=== PATIENT | male | born 1990 | race Caucasian/White ===

== ENCOUNTER 2017-03-06 17:10 | Inpatient (IN) | payer OTHER ==
[~2017-03-06] VITALS: Ht 180.3 cm; Wt 77.1 kg
[2017-03-06] MEDS ORDERED: METHOCARBAMOL 750 MG TABLET PO PRN (19:45)
[2017-03-06] MEDS ORDERED: LOPERAMIDE HCL 2 MG CAPSULE PO PRN ×2 (19:45)
[2017-03-06] MEDS ORDERED: BUPRENORPHINE HCL 2 MG TAB.SUBL SL PRN (19:45)
[2017-03-06] MEDS ORDERED: ONDANSETRON 4 MG/2 ML VIAL IM PRN (19:45)
[2017-03-06] MEDS ORDERED: ONDANSETRON ODT 4 MG TAB.RAPDIS SL PRN (19:45)
[2017-03-06] MEDS ORDERED: MAG HYDROX/AL HYDROX/SIMETH 30 ML LIQUID UDC PO PRN (19:45)
[2017-03-06] MEDS ORDERED: DICYCLOMINE HCL 20 MG TABLET PO PRN (19:45)
[2017-03-06] MEDS ORDERED: MIRALAX 17 GM POWD.PACK PO PRN (19:45)
[2017-03-06] MEDS ORDERED: MAGNESIUM HYDROXIDE 30 ML LIQUID UDC PO PRN (19:45)
[2017-03-06] MEDS ORDERED: diphenhydrAMINE 50 MG CAPSULE PO PRN (19:45)
[2017-03-06] MEDS ORDERED: ACETAMINOPHEN 325 MG TABLET PO PRN (19:45)
--- NOTE | 2017-03-06 19:45 | NUR ---
Pre Admission note Pt assessed in intake office. Pt is stable at this time and suitable for admission to unit. Policies on medication disposal explained and understood by patient. V/S WNL. Will admit to unit.
[2017-03-06 19:57] LABS: *AMPHETAMINE, URINE POSITIVE (NEGATIVE); *BARBITURATE, URINE NEGATIVE (NEGATIVE); *CANNABINOID, URINE POSITIVE (NEGATIVE); *COCCAINE, URINE NEGATIVE (NEGATIVE); *OPIATE, URINE POSITIVE (NEGATIVE); *PHENCYCLIDINE SCREEN,URINE NEGATIVE (NEGATIVE)
--- NOTE | 2017-03-06 20:00 | NUR ---
Admission note Pt is a 26 yo male, A+Ox4, presenting to [facility] for Opiate/Methamphetamine/Marijuana dependence. Pt has NKA, is on Full Code status, and on Regular diet. Pt is 5'11" in height and 170 LBS in weight. Pt has medical HX of MRSA. Pt has no family HX to report. Pt has no primary care provider. Pt has been using Heroin IV for 10 years (3 months currently), has reached a level of 2gm-3gm/daily, and last dose was "12gm" on 03-05-17. Pt has been using Methamphetamine IV/inhalation for 10 years (3 months currently), has reached a level of 0.25gm/daily, and last dose was 0.25gm on 03-04-17. Pt has been using Marijuana PO/inhalation for 12 years (3 months currently), has reached a level of "800mg"/daily, and last dose was 1gm on 03-06-17 @1900. Pt is not taking any home medications. Pt has HX of previous Detox/Rehab for 3 months @ [facility] in [facility] in June 2016, and continued sobriety for 3 more months totaling 6 months. This was the patients last time sober. Pt states that he only smokes cigarettes when at Detox/Rehab facility and smokes about 5/daily. Pt is stable at this time. V/S WNL. No s/s of distress noted at this time. Respirations even and unlabored. Will continue to monitor.
[2017-03-06 20:12] LABS: BASOPHILS # (AUTO) 0.1 K/uL (0.0-8.0); BASOPHILS % (AUTO) 0.7 % (0.0-2.0); EOSINOPHILS # (AUTO) 0.1 K/uL (0.0-0.7); HEMATOCRIT 38.9 % (40-50); HEMOGLOBIN 12.8 G/DL (14.0-18.0); LYMPHOCYTES % (AUTO) 25.1 % (20.5-51.5); MEAN CORPUSCULAR HGB CONC 33 g/dL (32.0-37.0); MEAN CORPUSCULAR VOLUME 85.1 FL (82.0-92.0); MONOCYTES % (AUTO) 8.4 % (0.0-11.0); NEUTROPHILS # (AUTO) 7.8 K/UL (1.8-8.9); NEUTROPHILS % (AUTO) 64.8 % (38.5-71.5); PLATELET COUNT (AUTO) 364 K/UL (150-450); RED BLOOD CELL COUNT(AUTO) 4.57 MIL/UL (4.7-6.1); WHITE BLOOD COUNT (AUTO) 11.9 K/UL (4.0-11.2)
[2017-03-06 20:23] LABS: ETHANOL < 3 MG/DL (0-0)
[2017-03-06 20:31] LABS: ALANINE AMINOTRANSFERASE 19 U/L (16-63); ALKALINE PHOSPHATASE 83 U/L (50-136); ASPARTATE AMINOTRANSFERASE 20 U/L (15-37); BILIRUBIN,TOTAL 0.1 mg/dL (0.2-1.0); CARBON DIOXIDE 30 mmol/L (21-32); CHLORIDE 103 mmol/L (98-107); CREATININE 1.3 mg/dL (0.6-1.3); GLUCOSE 92 mg/dL (74-106); MAGNESIUM 2.1 mg/dL (1.8-2.4); POTASSIUM 4.6 mmol/L (3.5-5.1); TOTAL PROTEIN, SERUM 7.4 g/dL (6.4-8.2); UREA NITROGEN, BLOOD 12 mg/dL (7-18)
[2017-03-06 20:39] VITALS: BP 111/61
[2017-03-07 00:16] VITALS: BP 98/52
--- NOTE | 2017-03-07 02:35 | NUR ---
PRN Motrin Pt c/o Right arm abscess pain and requested for PRN Motrin. Medication given and tolerated well. Will reassess within 1 HR. Will continue to monitor.
[2017-03-07] MEDS: IBUPROFEN 600 MG TABLET PO PRN (02:36)
--- NOTE | 2017-03-07 03:30 | NUR ---
PRN Motrin Reassessment Medication effective. Pt expresses reduction in pain. No s/s of ASE/distress noted at this time. Respirations even and unlabored. Will continue to monitor.
[2017-03-07 04:41] VITALS: BP 103/55
--- NOTE | 2017-03-07 07:01 | NUR ---
End of shift note Pt is a 26 yo male, A+Ox4, presenting to [facility] for Opiate/Methamphetamine/Marijuana dependence. Pt has NKA, is on Full Code status, and on Regular diet. Pt is on Fall precautions. Pt has HX of MRSA and Right arm abscess. Pt is on PRN medications until evaluation for taper medications by . Pt was given PRN Motrin @0235. Pt slept for a total of 7 HRS. Last COWS: 1 @0400. No s/s of distress noted at this time. Respirations even and unlabored. Will endorse to day shift nurse.
[2017-03-07 08:00] VITALS: BP 135/75
--- NOTE | 2017-03-07 08:10 | NUR ---
START OF SHIFT NOTE Received report from night nurse, 26 year old male admitted for Opiate/Methamphetamine/Marijuana dependence. NKA, Full Code status, Regular diet. Pt is on Fall precautions. Pt has history of MRSA and Right arm abscess. Pt currently not on any taper PRN available for s/s of withdrawal. Pt received PRN Motrin effective per night nurse, slept for 7 hours, Last COWS: 1. Received pt resting in her room in stable condition, responsive to verbal and tactile stimuli. Skin warm and dry to touch. Breathing normal no SOB noted. No s/s of distress noted at this time. Respirations even and unlabored. All safety measures in place, Call light within reach. Will cont to monitor.
[2017-03-07] MEDS: MULTIVITAMINS,THERAPEUTIC TABLET PO SCH (08:59)
[2017-03-07] MEDS ORDERED: TUBERCULIN,PURIF.PROT.DERIV. 5 TU/0.1 ML TEST ID ONE (09:00)
[2017-03-07] MEDS: HYDROXYZINE PAMOATE 25 MG CAPSULE PO PRN (09:03)
[2017-03-07] MEDS: CLONIDINE HCL 0.1 MG TABLET PO PRN (09:04)
--- NOTE | 2017-03-07 09:07 | NUR ---
COWS 18 Subutex 4mg sl prn given and pt c/o severe anxiety. Vistaril 25mg po prn and Clonidine 0.1mg po prn administered
--- NOTE | 2017-03-07 09:27 | NUR ---
SUBUTEX REASSESSMENT Upon reassessment pt reported medication effective COWS noted-7. Will cont to monitor.
--- NOTE | 2017-03-07 09:57 | NUR ---
VISTARIL/CLONIDINE REASSESSMENT Upon reassessment pt reported medications effective, feeling less anxious, chills and sweats subside. Will cont to monitor.
[2017-03-07] MEDS ORDERED: LORAZEPAM 1 MG TABLET PO PRN ×2 (10:45)
[2017-03-07] MEDS ORDERED: LORAZEPAM 2 MG/1 ML VIAL IM PRN (10:45)
[2017-03-07] MEDS ORDERED: BUPRENORPHINE HCL 2 MG TAB.SUBL SL ONE (10:45)
--- NOTE | 2017-03-07 11:17 | NUR ---
SUBUTEX x1 DOSE Pt was seen and evaluated by Dr. Iverson with new x1 order for Subutex 2mg SL. Administered medication as ordered COWS score noted -9. Will cont to monitor and reassess the pt. Safety measures in place.
--- NOTE | 2017-03-07 11:37 | NUR ---
REASSESSMENT Upon reassessment pt reported medication effective, feeling less anxious and agitated, COWS decreased to 5. Will cont to monitor.
[2017-03-07 12:00] VITALS: BP 128/79
[2017-03-07] MEDS: BUPRENORPHINE HCL 2 MG TAB.SUBL SL SCH ×3 (13:09→20:38)
[2017-03-07] MEDS: LORAZEPAM 1 MG TABLET PO SCH ×3 (13:09→20:35)
--- NOTE | 2017-03-07 13:36 | NUR ---
WOUND CARE CONSULT: PT PRESENTS WITH LARGE BUMP TO RT FOREARM WHICH IS RED AND PAINFUL. SURGICAL CONSULT CALLED TO DR LAURIE WHITESIDE BY DR EASLEY. WILL SEE PRN.
--- NOTE | 2017-03-07 15:34 | NUR ---
Therapist encouraged client to continue his daily participation in group psychotherapy. Therapist addressed any questions about the group with client, and client stated that he would continue to attend.
[2017-03-07 16:00] VITALS: BP 140/66
[2017-03-07] MEDS ORDERED: KETOROLAC TROMETHAMINE 30 MG INJ IM ONE (18:45)
--- NOTE | 2017-03-07 19:20 | NUR ---
END OF SHIFT NOTE Gave report to night nurse, 26 year old male admitted for Opiate/Methamphetamine/Marijuana dependence. NKA, Full Code status, Regular diet. Pt is on Fall precautions. Pt has history of MRSA and Right arm abscess. Pt received PRN medications and x1 dose noted to be effective. Pt started on 5 day Subutex and 5 days Ativan taper today tolerated well. Pt presents with large bump on his right arm red and hard to touch. Pt attended some groups and activities. Pt remained in stable condition.Breathing normal no SOB noted. Skin warm and dry to touch. Last CIWA-5, COWS-5. Encouraged Po fluids as tolerated. All safety measures in place, Call light within reach. Pt endorsed to night nurse in stable condition.
--- NOTE | 2017-03-07 19:45 | NUR ---
START OF SHIFT NOTE PATIENT ALERT AND ORIENTED X 4. RESPIRATION EVEN AND UNLABORED. PATIENT C/O 8/10 ON RIGHT ARM DUE TO ABSCESS, NAUSEATED BUT NO EMESIS, ABDOMINAL CRAMPING, SWEATING AND ANXIETY. RECEIVED REPORT FROM DAY SHIFT NURSE. PATIENT IS A 26 YEAR OLD MALE, ADMITTED FOR ETOH/OPIATE/MARIJUANA DEPENDENCE. PATIENT IS ON 5 DAY ATIVAN AND 5 DAY SUBUTEX TAPER, STARTED TODAY . PATIENT IS FULL CODE, REGULAR DIET AND NO KNOWN ALLERGY. PATIENTS DRUG OF CHOICE ARE HEROIN IV 2-3 GRAM FOR 10 YEARS, METH IV/SNORT 0.25 GRAM FOR 10 YEARS AND MARIJUANA 800 MG FOR 12 YEARS. PATIENT WAS GIVEN PRN SUBUTEX,CLONIDINE AND VISTARIL DURING THE DAY. LAST COWS 5 AND CIWA 5. UPON ADMISSION , PATIENT HAS ABSCESS ON RIGHT ANTECUBITAL ARM. ON FALL/SEIZURE PRECAUTION. SAFETY MEASURES IN PLACE. CALL LIGHT IN REACH. WILL CONTINUE TO MONITOR.
--- NOTE | 2017-03-07 19:51 | NUR ---
ONE TIME TORADOL INJECTION ER-ASSESSMENT PATIENT WAS GIVEN TORADOL INJECTION FOR PAIN 05/10 ON RIGHT ARM D/T ABSCESS. WILL MONITOR FOR EFFECTIVENESS Addendum: 03/08/17 at 0741 by FELICIA VITAL LVN ERROR :ADMINISTRATION
[2017-03-07 20:00] VITALS: BP 138/89
[2017-03-07] MEDS: SULFAMETH/TRIMETH 800/160 MG TABLET PO SCH (20:38)
[2017-03-07] MEDS: GABAPENTIN 300 MG CAPSULE PO SCH (20:38)
[2017-03-07] MEDS: LACTOBACILLUS RHAMNOSUS GG 1 EACH CAPSULE PO SCH (20:39)
--- NOTE | 2017-03-07 20:46 | NUR ---
PRN IMODIUM ADMINISTRATION PATIENT C/O DIARRHEA. PRN IMODIUM GIVEN. WILL MONITOR FOR EFFECTIVENESS
--- NOTE | 2017-03-07 20:51 | NUR ---
PRN TORADOL INJECTION RE-ASSESSMENT PATIENT STATES PAIN LEVEL NOW 2/10. ROBAXIN HELPFUL . WILL CONTINUE TO MONITOR
--- NOTE | 2017-03-07 20:51 | NUR ---
PRN ZOFRAN ADMINISTRATION PATIENT C/O NAUSEA BUT NO EMESIS. PRN ZOFRAN GIVEN. WILL MONITOR FOR EFFECTIVENESS
--- NOTE | 2017-03-07 21:46 | NUR ---
PRN IMODIUM RE-ASSESSMENT PATIENT STATES NO EPISODE OF DIARRHEA AT THIS TIME. WILL CONTINUE TO MONITOR.
--- NOTE | 2017-03-07 21:51 | NUR ---
PRN ZOFRAN RE-ASSESSMENT PATIENT STATES NAUSEA CEASED. WILL CONTINUE TO MONITOR
[2017-03-08] VITALS: BP 121/86
[2017-03-08] MEDS: HYDROXYZINE PAMOATE 25 MG CAPSULE PO PRN (03:12)
--- NOTE | 2017-03-08 03:21 | NUR ---
PRN VISTARIL ADMINISTRATION PATIENT WOKE AT THIS TIME ANXIOUS , RELAXATION TECHNIQUE PROVIDED, INEFFECTIVE. PRN VISTARIL GIVEN. WILL MONITOR FOR EFFECTIVENESS
[2017-03-08 04:00] VITALS: BP 127/80
--- NOTE | 2017-03-08 04:21 | NUR ---
PRN VISTARIL RE-ASSESSMENT PATIENT IN BED WITH EYES CLOSED. NO S/S OF DISTRESS. WILL CONTINUE TO MONITOR.
[2017-03-08] MEDS: KETOROLAC TROMETHAMINE 30 MG INJ IM PRN ×2 (06:22→22:18)
--- NOTE | 2017-03-08 06:25 | NUR ---
PRN Toradol Pt c/o Right arm abscess pain 10/10 and requested for PRN Toradol. Medication given and tolerated well. Will reassess within 1 HR. Will continue to monitor.
--- NOTE | 2017-03-08 07:25 | NUR ---
PRN TORADOL RE-ASSESSMENT PATIENT STATES TORADOL HELPFUL .PAIN LEVEL 3/10, TOLERABLE. WILL CONTINUE TO MONITOR
--- NOTE | 2017-03-08 07:40 | NUR ---
END OF SHIFT NOTE MONITORED PATIENT THROUGHOUT THE SHIFT. PATIENT REMAIN ALERT AND ORIENTED X 4. RESPIRATION EVEN AND UNLABORED. PATIENT C/O 8/10 ON RIGHT ARM DUE TO ABSCESS, NAUSEATED BUT NO EMESIS, ABDOMINAL CRAMPING, SWEATING AND ANXIETY. PATIENT IS A 26 YEAR OLD MALE, ADMITTED FOR ETOH/OPIATE/MARIJUANA DEPENDENCE. PATIENT IS ON 5 DAY ATIVAN AND 5 DAY SUBUTEX TAPER, TOLERATED WELL. NO ADVERSE REACTION TO MEDS. PATIENT IS FULL CODE, REGULAR DIET AND NO KNOWN ALLERGY. PATIENTS DRUG OF CHOICE ARE HEROIN IV 2-3 GRAM FOR 10 YEARS, METH IV/SNORT 0.25 GRAM FOR 10 YEARS AND MARIJUANA 800 MG FOR 12 YEARS. UPON ADMISSION , PATIENT HAS ABSCESS ON RIGHT ANTECUBITAL ARM. ON ANTIBIOTIC THERAPY, NO ADVERSE REACTION. ENCOURAGE FLUIDS. PATIENT WAS GIVEN ONE TIME TORADOL INJECTION AT 195, ZOFRAN 2050, IMMODIUM 2045 AND VISTARIL AT 311. AND AT 0622 PRN TORADOL INJECTION GIVEN. PATIENT COMPLIANT WITH MEDICATIONS AND TREATMENT PLAN. ON FALL/SEIZURE PRECAUTION. SAFETY MEASURES IN PLACE. CALL LIGHT IN REACH. WILL CONTINUE TO MONITOR. SLEPT 4 HOURS. FLUID INTAKE 972 ML. VOIDED X 3 BM. LAST COWS 3 AND CIWA 2.
[2017-03-08 08:00] VITALS: BP 128/78
[2017-03-08 08:11] LABS: HEPATITIS B SURFACE AG Negative (Negative)
[2017-03-08] MEDS: SULFAMETH/TRIMETH 800/160 MG TABLET PO SCH ×2 (08:35→22:19)
[2017-03-08] MEDS: LORAZEPAM 1 MG TABLET PO SCH ×3 (08:35→22:18)
[2017-03-08] MEDS: FOLIC ACID 0.4 MG TABLET PO SCH (08:36)
[2017-03-08] MEDS: THIAMINE HCL 100 MG TABLET PO SCH (08:36)
[2017-03-08] MEDS: MULTIVITAMINS,THERAPEUTIC TABLET PO SCH (08:36)
[2017-03-08] MEDS: LACTOBACILLUS RHAMNOSUS GG 1 EACH CAPSULE PO SCH ×2 (08:36→22:18)
[2017-03-08] MEDS: GABAPENTIN 300 MG CAPSULE PO SCH ×2 (08:36→14:38)
[2017-03-08] MEDS: BUPRENORPHINE HCL 2 MG TAB.SUBL SL SCH ×3 (08:36→21:00)
--- NOTE | 2017-03-08 10:00 | NUR ---
START OF SHIFT Received report from material handler 2nd shift nurse. Patient is 26 year old male admitted for medically supervised withdrawal from alcohol and heroin. Patient is full code with NKA. On 5-day Subutex and 5-Day Ativan taper. On assessment this AM: CIWA: 4 and COWS: 6. Denies SOB, chest pain. Recent VS: 128/78, HR 69 R18, T98.4, 0/10 pain and 99% 02 sat room air. Complained of restlessness and mild agitation, mild body aches (declined prn pain med at this time), stuffy nose, tremors and anxiety. Med compliant with AM meds. Patient complained of nausea but declined prn at this time, reports he is tolerating his breakfast. Patient has abscess on R forearm, warmth and redness noted, and pain reported by patient. Patient was encouraged to attend group meetings today. Will continue to monitor patient. Patient was encouraged to attend group meetings today. Will continue to monitor patient.
[2017-03-08 12:00] VITALS: BP 125/85
[2017-03-08] MEDS: IBUPROFEN 600 MG TABLET PO PRN (14:38)
--- NOTE | 2017-03-08 14:40 | NUR ---
PATIENT REFUSED SCHEDULED 1500PM SUBUTEX Patient refused scheduled subutex at this time. States he does not need it at this time.
[2017-03-08 16:00] VITALS: BP 118/84
[2017-03-08] MEDS: CLONIDINE HCL 0.1 MG TABLET PO PRN (17:20)
--- NOTE | 2017-03-08 17:20 | NUR ---
PRN CLONIDINE Patient was anxious and tearful during the I&D procedure, prn clonidine (BP 118/84) was given. will monitor effectiveness of medication.
--- NOTE | 2017-03-08 18:20 | NUR ---
REASSESSMENT (PRN CLONIDINE) Patient appears calmer and reports decreased anxiety.
--- NOTE | 2017-03-08 18:46 | NUR ---
END OF SHIFT Patient is 26 year old male admitted for medically supervised withdrawal from alcohol and heroin. Patient is full code with NKA. On 5-day Subutex and 5-Day taper. Most recent CIWA: 6 and COWS: 6. Patient reports increasing anxiety. Consent for I/D procedure obtained from patient, patient appears anxius and tearful prior to procedure, prn clonidine was given. I/D performed by Bea Weiner DISC PAD KNOCKOUT WORKER for from surgery at bedside. Photo take prior to procedure. Incision site packed and covered with dressing and kerlix secured with tape. Patient tolerated procedure. Patient denies any pain at this time as he received numbing injection during the procedure. Med compliant during this shift. evening or night nurse supervisormaintenance technician 3rd shift will continue to monitor patient.
[2017-03-08 20:00] VITALS: BP 114/61
--- NOTE | 2017-03-08 20:00 | NUR ---
Start of Shift Note: Report received from day shift nurse. Pt is a 26 Y/O male admitted on 03/06/17 for medically-supervised withdrawal from opiates, methamphetamines, and ETOH. Pt reports using 2-3gm IV heroin, 0.25gm IV methamphetamine, and drinking 6 beers daily for 3 months. Pt is on a 5-day Ativan and Subutex tapers. Pt received with last COWS=6, CIWA=6, and PRN's clonidine, Motrin, and Tylenol were given during day shift. Pt reports NKDA/NKFA. Pt is full code status. Pt is on a regular diet. Pt reports PMHx: Hx of MRSA. Pt has abscess on right forearm, s/p I&D today; Bactrim and wound care ordered. Pt is currently on room restriction d/t non-compliance with unit rules. Pt is currently in bed sleeping, no distress noted. Bed is in low position and locked, side rails up x2, call light within reach. Will continue to monitor.
[2017-03-08] MEDS ORDERED: GABAPENTIN 300 MG CAPSULE PO SCH (21:00)
--- NOTE | 2017-03-08 21:00 | NUR ---
Subutex Non-Admin: Patient refuses 21:00 scheduled Subutex. Patient states, "I don't want to take the Subutex, I don;t need it." Patient educated on risks and benefits but refused again.
--- NOTE | 2017-03-08 21:00 | NUR ---
21:00 Meds Late: Scheduled 21:00 medications administered late d/t behavioral issues with client. 21:00 medications administered at 22:18.
--- NOTE | 2017-03-08 21:45 | NUR ---
Behavioral Note: Patient in bed with eyes closed. Respirations even and unlabored. No distress noted. Attempted to wake patient x2 with verbal instructions to patient to wake up for nursing assessment. Patient opened eyes, reached out with both hands and grabbed nurse on hips. Patient instructed to not touch staff members. Patient laid back on bed and placed hand on groin.
--- NOTE | 2017-03-08 22:18 | NUR ---
PRN Toradol: Patient complains of 8/10 pain in right arm d/t abscess I&D. Administered PRN Toradol IM in left deltoid with 1" 22G as ordered.
--- NOTE | 2017-03-08 22:20 | NUR ---
Behavioral Note: Nurse administered Toradol IM in patient's left deltoid according to unit protocol. After IM injection, patient states, "You fucking inconsiderate bitch." Patient instructed on appropriate language use with staff members. MD and administration made aware.
--- NOTE | 2017-03-08 22:29 | NUR ---
Endorsed Care: Endorsed care of pt to charge nurse Alfredito Mendez RN. All pertinent info discussed.
--- NOTE | 2017-03-08 22:30 | NUR ---
REPORT RECEIVED Patient is 26 year old, male, admitted for Alcohol and Heroin Dependence. Patient on Regular Diet, is Full Code and with NKA. On 5-day Subutex and 5-Day taper, started 03/07/2017. With MHx of MRSA nares and Right arm abscess. S/P I&D of right arm abscess, 03/08/2017, with dressing-clean, dry and intact. Pt noted to be anxious, provided teachings, instructions and reassurance. Pt verbalized understanding. Pt is ambulatory with steady gait. Fall, universal and seizure prec in place. Call light within reach. On room restriction and pt is aware. Will continue to monitor.
--- NOTE | 2017-03-08 22:50 | NUR ---
RN note reassess Pt verbalized relief from pain on the right arm s/p I&D, with pain level=3/10.
[2017-03-09] VITALS: BP 120/72
[2017-03-09 04:00] VITALS: BP 111/67
--- NOTE | 2017-03-09 07:06 | NUR ---
End of Shift Patient is 26 year old, male, admitted for Alcohol and Heroin Dependence. Patient on Regular Diet, is Full Code and with NKA. On 5-day Subutex and 5-Day taper, started 03/07/2017. With MHx of MRSA nares and Right arm abscess. S/P I&D of right arm abscess, 03/08/2017, with dressing-clean, dry and intact. No anxiety noted at this time. Pt verbalized wanting to apologize to MARCEL Mclean for his behavior early in the shift. Pt is ambulatory with steady gait. Fall, universal and seizure prec in place. Call light within reach. On room restriction and pt is aware. Latest COWS=4, CIWA=5 and slept for 8 hours. Will continue to monitor.
[2017-03-09 08:00] VITALS: BP 127/91
[2017-03-09] MEDS: KETOROLAC TROMETHAMINE 30 MG INJ IM PRN (09:00)
[2017-03-09] MEDS ORDERED: LORAZEPAM 1 MG TABLET PO SCH (09:00)
[2017-03-09] MEDS ORDERED: BUPRENORPHINE HCL 2 MG TAB.SUBL SL SCH ×2 (09:00→15:00)
--- NOTE | 2017-03-09 09:00 | NUR ---
PRN KETOROLAC IM Patient complains of pain 07/10, moaning, crying. Pain on R arm where he had abscess and s/p I&D 03/08/17. PRN ketorolac IM injection given. Will monitor effectiveness of medication.
--- NOTE | 2017-03-09 09:00 | NUR ---
0900 MEDICATION REFUSAL Patient refused his scheduled dose of subutex and lorazepam. States that he is no longer withdrawing and will talk to his doctor today.
[2017-03-09] MEDS: SULFAMETH/TRIMETH 800/160 MG TABLET PO SCH (09:01)
[2017-03-09] MEDS: LACTOBACILLUS RHAMNOSUS GG 1 EACH CAPSULE PO SCH (09:01)
[2017-03-09] MEDS: FOLIC ACID 0.4 MG TABLET PO SCH (09:01)
[2017-03-09] MEDS: THIAMINE HCL 100 MG TABLET PO SCH (09:01)
[2017-03-09] MEDS: GABAPENTIN 300 MG CAPSULE PO SCH (09:01)
[2017-03-09] MEDS: MULTIVITAMINS,THERAPEUTIC TABLET PO SCH (09:01)
--- NOTE | 2017-03-09 10:00 | NUR ---
REASSESSMENT (PRN KETOROLAC IM) Patient reports pain level 8/10. Mildly effective after 1 hour. Will continue to monitor patient's pain level.
--- NOTE | 2017-03-09 10:48 | NUR ---
START OF SHIFT Received report from machinist 2nd shift nurse. Patient is 26 year old male admitted for medically supervised withdrawal from alcohol and heroin. Patient is full code with NKA. On 5-day Subutex and 5-Day taper. On assessment this AM: CIWA: 2 and COWS: 2. Denies SOB, chest pain, tremors, n/v/d, headache/bodyaches. Complained of pain on the incision site (R forearm). Vitals WNL. Refused to take his scheduled subutex and ativan, states he is feeling better and no longer withdrawing, pt. spoek to bessy NEWTON during rounds. Patient is s/p I&D 03/08/17, premdedicated with toradol injection prior to wound care done. Area cleansed with saline and repacked with iodoform strips and covered with gauze and kerlix secured with tape. Patient initially refused to have wound repacked but agreed after patient teaching provided. Patient also did not allow tag writer to put enough packing. Patient was encouraged to attend group meetings today. Will continue to monitor patient.
[2017-03-09 12:00] VITALS: BP 144/84
[2017-03-09] MEDS ORDERED: SULF1TAB3 PO (13:05)
[2017-03-09] MEDS ORDERED: IBUP-1955 PO (13:05)
[2017-03-09] MEDS ORDERED: GABA-534 PO ×2 (13:05)
[2017-03-09] MEDS ORDERED: DIPH50CA37 PO (13:05)
[2017-03-09] MEDS ORDERED: HYDR-3895 PO (13:05)
[2017-03-09] MEDS ORDERED: METH-33 PO (13:05)
[2017-03-09] MEDS ORDERED: LACT1CAP57 PO (13:05)
--- NOTE | 2017-03-09 13:20 | NUR ---
Discharge note Pt was admitted for opiate and ETOH dependence and methamphetamine abuse. Pt has a recent COWS and CIWA of 2. Pt VS are WNL. Pt LBM was 03/08/17. {Pt states that he feels ready for discharge. Denies SI/HI. Pt stated he was in a walsh for discharge and refused to wait for discharge paperwork to be printed out, educated pt that the paperwork can be faxed over to his treatment facility. Pt agreed. Pt prescription and all belongings given to pt. Pt ID band removed, pt ambulated off of unit with ALUMINUM POLISHER, left facility via private vehicle for [place].
[2017-03-09 14:27] LABS: *AMPHETAMINE, URINE NEGATIVE (NEGATIVE); *BARBITURATE, URINE NEGATIVE (NEGATIVE); *CANNABINOID, URINE NEGATIVE (NEGATIVE); *COCCAINE, URINE NEGATIVE (NEGATIVE); *OPIATE, URINE NEGATIVE (NEGATIVE); *PHENCYCLIDINE SCREEN,URINE NEGATIVE (NEGATIVE)
[2017-03-10] MEDS ORDERED: LORAZEPAM 1 MG TABLET PO SCH (09:00)
[2017-03-10] MEDS ORDERED: BUPRENORPHINE HCL 2 MG TAB.SUBL SL SCH (09:00)
[2017-03-11] MEDS ORDERED: LORAZEPAM 1 MG TABLET PO SCH (09:00)
[2017-03-11] MEDS ORDERED: BUPRENORPHINE HCL 2 MG TAB.SUBL SL SCH (09:00)
== END 2017-03-09 13:20 | disposition other institution (70) | DRG 895 ==
LOC: SRC 19:13
PROVIDERS: ADMIT Internal Medicine; ATTEND Internal Medicine
PROC: HZ2ZZZZ Detoxification Services for Substance Abuse Treatment (ICD-10-PCS; principal; 2017-03-06)
PROC: HZ41ZZZ Group Counseling for Substance Abuse Treatment, Behavioral (ICD-10-PCS; 2017-03-07)
PROC: HZ31ZZZ Individual Counseling for Substance Abuse Treatment, Behavioral (ICD-10-PCS; 2017-03-08)
PROC: 0H9DXZZ Drainage of Right Lower Arm Skin, External Approach (ICD-10-PCS; 2017-03-08)
DX: F10.230 Alcohol dependence with withdrawal, uncomplicated (principal); L02.413 Cutaneous abscess of right upper limb; F15.20 Other stimulant dependence, uncomplicated; F11.23 Opioid dependence with withdrawal; Y90.9 Presence of alcohol in blood, level not specified; Z83.3 Family history of diabetes mellitus; Z81.1 Family history of alcohol abuse and dependence; Z59.1 Inadequate housing; F41.9 Anxiety disorder, unspecified; F17.210 Nicotine dependence, cigarettes, uncomplicated; F12.10 Cannabis abuse, uncomplicated; Z82.49 Family history of ischemic heart disease and other diseases of the circulatory system; S51.031S Puncture wound without foreign body of right elbow, sequela; L08.9 Local infection of the skin and subcutaneous tissue, unspecified; X78.8XXS Intentional self-harm by other sharp object, sequela; D64.9 Anemia, unspecified; D72.829 Elevated white blood cell count, unspecified; F13.10 Sedative, hypnotic or anxiolytic abuse, uncomplicated
CPT/HCPCS: 36415; 70030-TC; 80307; 80324; 80349; 80361; 83735; 85025; 86580; 86592; 86705; 86803; 87070; 87077; 87340; 87806; A4663; G0480; J1885; Q0162; Q0163

== ENCOUNTER 2017-04-23 16:27 | Inpatient (IN) | payer OTHER ==
[~2017-04-23] VITALS: Ht 180.3 cm; Wt 72.6 kg
[2017-04-23 04:00] VITALS: BP 124/65
[~2017-04-23 16:27] MED LIST: DIPH50CA37 PO; GABA-534 PO; HYDR-3895 PO; IBUP-1955 PO; LACT1CAP57 PO; METH-33 PO; SULF1TAB3 PO
[2017-04-23 17:58] LABS: CARBON DIOXIDE 29 mmol/L (21-32); CHLORIDE 99 mmol/L (98-107); CREATININE 1.4 mg/dL (0.6-1.3); GLUCOSE 88 mg/dL (74-106); UREA NITROGEN, BLOOD 9 mg/dL (7-18)
[2017-04-23 18:03] LABS: ALANINE AMINOTRANSFERASE 30 U/L (16-63); ALKALINE PHOSPHATASE 113 U/L (50-136); ASPARTATE AMINOTRANSFERASE 30 U/L (15-37); BILIRUBIN,DIRECT 0.1 mg/dL (0.0-0.2); BILIRUBIN,TOTAL 0.2 mg/dL (0.2-1.0); TOTAL PROTEIN, SERUM 7.6 g/dL (6.4-8.2)
--- NOTE | 2017-04-23 18:03 | NUR ---
urine collected and sent to lab.
[2017-04-23 18:13] LABS: BASOPHILS % (AUTO) 0.5 % (0.0-2.0); EOSINOPHILS # (AUTO) 0.1 K/uL (0.0-0.7); EOSINOPHILS % (AUTO) 0.8 % (0.0-7.0); HEMATOCRIT 41.2 % (40-50); HEMOGLOBIN 13.6 G/DL (14.0-18.0); LYMPHOCYTES # (AUTO) 1.5 K/UL (0.8-4.8); MEAN CORPUSCULAR HEMOGLOBIN 26.9 UUG (27.0-31.0); MEAN CORPUSCULAR HGB CONC 33 g/dL (32.0-37.0); MEAN CORPUSCULAR VOLUME 81.6 FL (82.0-92.0); MONOCYTES # (AUTO) 0.4 K/UL (0.1-1.30); MONOCYTES % (AUTO) 4.9 % (0.0-11.0); NEUTROPHILS # (AUTO) 5.7 K/UL (1.8-8.9); NEUTROPHILS % (AUTO) 74.8 % (38.5-71.5); PLATELET COUNT (AUTO) 337 K/UL (150-450); RED BLOOD CELL COUNT(AUTO) 5.05 MIL/UL (4.7-6.1); WHITE BLOOD COUNT (AUTO) 7.7 K/UL (4.0-11.2)
[2017-04-23 18:15] LABS: ETHANOL < 3 MG/DL (0-0)
--- NOTE | 2017-04-23 18:38 | NUR ---
Dr Menjivar at the bedside for eval and exam.
[2017-04-23 19:17] LABS: *AMPHETAMINE, URINE NEGATIVE (NEGATIVE); *BARBITURATE, URINE NEGATIVE (NEGATIVE); *CANNABINOID, URINE POSITIVE (NEGATIVE); *COCCAINE, URINE POSITIVE (NEGATIVE); *OPIATE, URINE POSITIVE (NEGATIVE); *PHENCYCLIDINE SCREEN,URINE NEGATIVE (NEGATIVE)
--- NOTE | 2017-04-23 20:00 | NUR ---
IV access not available due to drug (heroin/opiates) withdrawal.
--- NOTE | 2017-04-23 20:19 | NUR ---
Call placed to [facility], Dr. Johnston will be paged.
[2017-04-23] MEDS ORDERED: LORAZEPAM 2 MG/1 ML VIAL IM ONE (20:30)
--- NOTE | 2017-04-23 20:40 | NUR ---
Given Ativan 1mg/IVP x 1 now at rt gluteal area as ordered for severe anxiety. Assessed VS, stable, pt remained restless for few minutes, encouraged to take a deep breath, provided bag to blow in.
[2017-04-23] MEDS ORDERED: LORAZEPAM 2 MG/1 ML VIAL ONE ×2 (20:43→22:37)
--- NOTE | 2017-04-23 21:00 | NUR ---
Pt going back and forth to room, asked permission to smoke earlier, okayed. Pt on and off restless.
--- NOTE | 2017-04-23 21:00 | NUR ---
Pt will be admitted to med surg.MD Johnston is aware per Dr. Menjivar.Obtained bed, pt going to room 224.
[2017-04-23] MEDS ORDERED: MAGNESIUM HYDROXIDE 30 ML LIQUID UDC PO PRN (21:30)
[2017-04-23] MEDS ORDERED: LORAZEPAM 2 MG/1 ML VIAL IV PRN (21:30)
[2017-04-23] MEDS ORDERED: METHOCARBAMOL 750 MG TABLET PO PRN (21:30)
[2017-04-23] MEDS ORDERED: Z GUARD REMEDY PASTE 57 GM TUBE TOP PRN (21:30)
[2017-04-23] MEDS ORDERED: IBUPROFEN 600 MG TABLET PO PRN (21:30)
[2017-04-23] MEDS ORDERED: ACETAMINOPHEN 325 MG TABLET PO PRN (21:30)
[2017-04-23] MEDS ORDERED: diphenhydrAMINE 50 MG CAPSULE PO PRN (21:30)
[2017-04-23] MEDS ORDERED: ONDANSETRON 4 MG/2 ML VIAL IV PRN (21:30)
--- NOTE | 2017-04-23 21:30 | NUR ---
Given report to Teresa,Charge Nurse 2nd floor.
--- NOTE | 2017-04-23 22:00 | NUR ---
ER note:Transferred pt to room 209 via raj waters/ Ahsan Morel. Pt asking that he's still having withdrawal symptoms despite of Ativan 1mg, he said that it helped a little bit after the Ativan 1mg/IM shot.
[2017-04-23 22:05] VITALS: BP 128/58
--- NOTE | 2017-04-23 22:05 | NUR ---
[facility]OX[facility]. ABLE TO MAKE NEEDS KNOWN. ORIENTED TO ROOM. V/S STABLE. NO ACUTE DISTRESS NOTED. NO COMPLAINTS OF PAIN. PT SEEMS AGITATED, YELLING "I CAN'T DO THIS." PT TOSSING AND TURNING IN BED. ATIVAN ADMINISTERED ORDERED. SAFETY MEASURES IMPLEMENTED. SITTER AT BEDSIDE FOR SAFETY. CALL LIGHT WITHIN REACH. WILL CONTINUE TO MONITOR.
[2017-04-23] MEDS: HYDROXYZINE PAMOATE 25 MG CAPSULE PO PRN (23:25)
[2017-04-23] MEDS ORDERED: METHOCARBAMOL 500 MG TABLET ONE (23:30)
[2017-04-23] MEDS ORDERED: hydrOXYzine HCL 25 MG TABLET ONE (23:31)
[2017-04-24] MEDS ORDERED: LORAZEPAM 2 MG/1 ML VIAL ONE ×2 (00:31→04:33)
[2017-04-24] MEDS: LORAZEPAM 2 MG/1 ML VIAL IV PRN ×5 (00:36→20:12)
--- NOTE | 2017-04-24 05:49 | NUR ---
END OF SHIFT NOTES. PT IN STABLE CONDITION. SLEPT INTERMITTENTLY THROUGHOUT SHIFT. ATIVAN ADMINISTERED Q4HRS FOR AGITATION ORDERED. PT NEEDS ATTENDED. V/S STABLE. IN NO ACUTE DISTRESS. NO COMPLAINTS OF PAIN. SAFETY MAINTAINED. SITTER AT BEDSIDE. CALL LIGHT WITHIN REACH.
[2017-04-24 07:07] LABS: BASOPHILS % (AUTO) 0.4 % (0.0-2.0); EOSINOPHILS # (AUTO) 0.1 K/uL (0.0-0.7); HEMATOCRIT 41.1 % (40-50); HEMOGLOBIN 13.4 G/DL (14.0-18.0); LYMPHOCYTES # (AUTO) 2.9 K/UL (0.8-4.8); LYMPHOCYTES % (AUTO) 30.1 % (20.5-51.5); MEAN CORPUSCULAR HEMOGLOBIN 26.7 UUG (27.0-31.0); MEAN CORPUSCULAR HGB CONC 33 g/dL (32.0-37.0); MEAN CORPUSCULAR VOLUME 82.3 FL (82.0-92.0); MONOCYTES % (AUTO) 10.2 % (0.0-11.0); NEUTROPHILS # (AUTO) 5.7 K/UL (1.8-8.9); NEUTROPHILS % (AUTO) 58.3 % (38.5-71.5); PLATELET COUNT (AUTO) 354 K/UL (150-450)
[2017-04-24 07:17] LABS: WHITE BLOOD COUNT (AUTO) 9.7 K/UL (4.0-11.2)
[2017-04-24] MEDS ORDERED: METHOCARBAMOL 750 MG TABLET PO PRN (07:20)
[2017-04-24 07:28] LABS: CREATININE 1.4 mg/dL (0.6-1.3); PHOSPHOROUS 3.2 mg/dL (2.5-4.9); POTASSIUM 4.4 mmol/L (3.5-5.1)
--- NOTE | 2017-04-24 07:53 | NUR ---
ATIVAN GIVEN BY NOC NURSE
[2017-04-24] MEDS: GABAPENTIN 300 MG CAPSULE PO SCH ×2 (08:40→15:31)
[2017-04-24] MEDS ORDERED: SULFAMETH/TRIMETH 800/160 MG TABLET PO SCH (09:00)
[2017-04-24] MEDS ORDERED: LACTOBACILLUS RHAMNOSUS GG 1 EACH CAPSULE PO SCH (09:00)
[2017-04-24] MEDS ORDERED: IV NS 1000 ML 1,000 ML IV PRN (10:00)
[2017-04-24] MEDS: MULTIVITAMINS,THERAPEUTIC TABLET PO SCH (10:42)
[2017-04-24] MEDS: THIAMINE HCL 100 MG TABLET PO SCH (10:42)
[2017-04-24] MEDS: LACTOBACILLUS RHAMNOSUS GG 1 EACH CAPSULE PO SCH ×2 (10:42→20:04)
[2017-04-24] MEDS: FOLIC ACID 1 MG TABLET PO SCH (10:42)
[2017-04-24 11:26] VITALS: BP 113/72
[2017-04-24 11:37] LABS: *BILIRUBIN,URIN NEGATIVE (NEGATIVE); *BLOOD, URINE NEGATIVE (NEGATIVE); *CLARITY,URINE CLEAR (CLEAR); *COLOR,URINE YELLOW (YELLOW); *KETONES,URINE NEGATIVE (NEGATIVE); *PROTEIN,URINE NEGATIVE (NEGATIVE); *UROBILINOGEN,URINE 0.2 E.U./dl (NORMAL); LEUKOCYTE ESTERASE ,URINE NEGATIVE (NEGATIVE); NITRITE, URINE NEGATIVE (NEGATIVE); PH,URINE 8.5 (5.0-8.0); UGLUCOSE NEGATIVE (NEGATIVE)
[2017-04-24 11:53] LABS: BACTERIA,URINE NONE SEEN /HPF (NONE SEEN); RBC,URINE NONE SEEN /HPF (0-3); SQUAMOUS EPITHELIAL CELL,UR NONE SEEN /HPF (NONE SEEN); WBC,URINE 0-3 /HPF (0-3)
--- NOTE | 2017-04-24 13:02 | NUR ---
AUNDREA VAUGHN STATES THAT IT OK TO GIVE ALL INFORMATION TO HIS MOTHER MASON VAUGHN [phone]
--- NOTE | 2017-04-24 13:59 | NUR ---
pt refused to urinate or be catheterized for UA
[2017-04-24 15:28] VITALS: BP 120/82
--- NOTE | 2017-04-24 15:36 | NUR ---
NICOTINE PATCH 21 MG PER EBER, PACKAGER
[2017-04-24] MEDS: NICOTINE 21 MG/24HR PATCH TD SCH (15:40)
--- NOTE | 2017-04-24 19:00 | NUR ---
RECEIVED PATIENT IN BED ALERT ORIENT, NO SOB NO CHEST PAIN NOTED, CONT ON PAIN MANAGEMENT, CONT ON 1;1 SITTER FOR SAFETY, NO COUGHING NO CONGESTION NOTED.
--- NOTE | 2017-04-24 19:20 | NUR ---
pt is laying in bed comfortably. no s/s of respiratory distress noted. no pain noted. all safety needs are met. iv intact/patent. report is given
[2017-04-24 20:00] VITALS: BP 123/79
[2017-04-24] MEDS: HYDROXYZINE PAMOATE 25 MG CAPSULE PO PRN (20:05)
[2017-04-24] MEDS ORDERED: GABAPENTIN 300 MG CAPSULE PO SCH (21:00)
[2017-04-25] MEDS: LORAZEPAM 2 MG/1 ML VIAL IV PRN ×3 (00:23→08:07)
[2017-04-25] MEDS: HYDROXYZINE PAMOATE 25 MG CAPSULE PO PRN (02:51)
[2017-04-25 06:08] LABS: HEPATITIS B SURFACE AB Reactive (.); HEPATITIS B SURFACE AG Negative (Negative)
[2017-04-25 06:44] LABS: BASOPHILS % (AUTO) 0.4 % (0.0-2.0); EOSINOPHILS % (AUTO) 0.4 % (0.0-7.0); HEMATOCRIT 44.1 % (40-50); HEMOGLOBIN 14.4 G/DL (14.0-18.0); LYMPHOCYTES # (AUTO) 2.8 K/UL (0.8-4.8); LYMPHOCYTES % (AUTO) 24.3 % (20.5-51.5); MEAN CORPUSCULAR HEMOGLOBIN 27.1 UUG (27.0-31.0); MEAN CORPUSCULAR HGB CONC 33 g/dL (32.0-37.0); MEAN CORPUSCULAR VOLUME 83.4 FL (82.0-92.0); MONOCYTES # (AUTO) 0.8 K/UL (0.1-1.30); MONOCYTES % (AUTO) 7.3 % (0.0-11.0); NEUTROPHILS % (AUTO) 67.6 % (38.5-71.5); PLATELET COUNT (AUTO) 363 K/UL (150-450); RED BLOOD CELL COUNT(AUTO) 5.29 MIL/UL (4.7-6.1); WHITE BLOOD COUNT (AUTO) 11.6 K/UL (4.0-11.2)
[2017-04-25 06:49] LABS: BILIRUBIN,TOTAL 0.2 mg/dL (0.2-1.0); CREATININE 1.3 mg/dL (0.6-1.3); MAGNESIUM 1.9 mg/dL (1.8-2.4); PHOSPHOROUS 2.8 mg/dL (2.5-4.9); POTASSIUM 4.2 mmol/L (3.5-5.1); TOTAL PROTEIN, SERUM 7.5 g/dL (6.4-8.2)
[2017-04-25 06:59] LABS: THYROID STIMULATING HORMONE 0.342 mIU/mL (0.358-3.740)
[2017-04-25] MEDS ORDERED: PANTOPRAZOLE SODIUM 40 MG TABLET.DR PO SCH (07:00)
[2017-04-25 07:06] VITALS: BP 124/74
--- NOTE | 2017-04-25 08:00 | NUR ---
awake. alert, oriented, resting in bed and screaming for his Ativan, denies of pain, Ativan 1 mg iv given as ordered, on 1:1 sitter, safety measures maintained, breakfast given, explained plan of care, states okay but states Ativan is not working after one minute it was given- informed to give time for medicine to work, call light within reach
[2017-04-25] MEDS: LACTOBACILLUS RHAMNOSUS GG 1 EACH CAPSULE PO SCH (08:11)
[2017-04-25] MEDS: THIAMINE HCL 100 MG TABLET PO SCH (08:11)
[2017-04-25] MEDS: MULTIVITAMINS,THERAPEUTIC TABLET PO SCH (08:11)
[2017-04-25] MEDS: GABAPENTIN 300 MG CAPSULE PO SCH (08:11)
[2017-04-25] MEDS: FOLIC ACID 1 MG TABLET PO SCH (08:11)
[2017-04-25] MEDS: NICOTINE 21 MG/24HR PATCH TD SCH (08:11)
--- NOTE | 2017-04-25 10:25 | NUR ---
asking for his ativan but informed it's not due at 1210, Christa Gibbs INFORMATION ASSURANCE SPECIALIST informed and saw pt
--- NOTE | 2017-04-25 11:30 | NUR ---
decided to go AMA, papers signed, Christa Gibbs COAL HANDLER informed, saline lock removed- no swelling/redness noted on site, to lobby with sitter with all belongings, no distress noted
== END 2017-04-25 11:30 | disposition left against medical advice (07) | DRG 770 ==
LOC: ER 16:28 → MED 21:57
PROVIDERS: ADMIT Family Medicine; ATTEND Nurse Practitioner Acute Care
DX: F13.239 Sedative, hypnotic or anxiolytic dependence with withdrawal, unspecified (principal); N17.0 Acute kidney failure with tubular necrosis; R56.9 Unspecified convulsions; D50.9 Iron deficiency anemia, unspecified; E86.9 Volume depletion, unspecified; F10.10 Alcohol abuse, uncomplicated; F41.9 Anxiety disorder, unspecified; F12.90 Cannabis use, unspecified, uncomplicated; F14.90 Cocaine use, unspecified, uncomplicated; Z86.14 Personal history of Methicillin resistant Staphylococcus aureus infection; F11.90 Opioid use, unspecified, uncomplicated; T39.395A Adverse effect of other nonsteroidal anti-inflammatory drugs [NSAID], initial encounter; Y92.89 Other specified places as the place of occurrence of the external cause; D72.829 Elevated white blood cell count, unspecified; Y90.0 Blood alcohol level of less than 20 mg/100 ml
CPT/HCPCS: 36415; 71010; 80307; 83735; 84100; 84443; 84481; 85025; 85610; 86705; 86706; 86803; 87086; 87340; 87806; A4663; G0480; J2060; J7030